=== PATIENT | male | born 1975 | race Caucasian/White ===

== ENCOUNTER → 2023-06-26 08:23 | Outpatient (BNVA) | payer OTHER, SELFPAY | PROVIDERS: Family Provider Family Medicine; PCP Family Medicine; Visit Provider Family Medicine | DX: Z00.00 Encounter for general adult medical examination without abnormal findings (principal) | CPT/HCPCS: 80053; 80061 ==

== ENCOUNTER 2023-07-24 03:39 | Emergency (ER) | payer OTHER, SELFPAY ==
[2023-07-24 03:45] VITALS: BP 135/86; PULSE 100; RESP 18; TEMP 36.6; O2SAT 100; BMI 25.0
--- NOTE | 2023-07-24 03:50 | CTR_ITS ---
PROCEDURE INFORMATION: Exam: CT Abdomen And Pelvis With Contrast Exam date and time: 07/24/2023 4:05 AM Age: 47 years old Clinical indication: Abdominal pain; Localized; Right lower quadrant (rlq); Prior surgery; Surgery date: 6+ months; Surgery type: Gb; Additional info: Rlq pain TECHNIQUE: Imaging protocol: Computed tomography of the abdomen and pelvis with contrast. Radiation optimization: All CT scans at this facility use at least one of these dose optimization techniques: automated exposure control; mA and/or kV adjustment per patient size (includes targeted exams where dose is matched to clinical indication); or iterative reconstruction. Contrast material: OMNI 350; Contrast volume: 100 ml; Contrast route: INTRAVENOUS (IV); REPORTING DATA: Count of CT and Cardiac NM exams in prior 12 months: This patient has received 0 known CTs and 0 known cardiac nuclear medicine studies in the 12 months prior to the current study. COMPARISON: No relevant prior studies available. RADIATION DOSE METRICS: Total DLP (mGy-cm): 677.3 FINDINGS: Lungs: The lung bases are clear. Liver: Unremarkable. Gallbladder and bile ducts: Prior cholecystectomy, no significant biliary tree dilation. Pancreas: Unremarkable. Spleen: Unremarkable. Adrenal glands: Unremarkable. Kidneys and ureters: No hydronephrosis of either kidney. No visible ureteral calculus. No perinephric fluid. The kidneys enhance homogeneously. Stomach and bowel: No significant bowel distention. There are no CT findings to strongly suggest diverticulitis. Appendix: The appendix is visualized and appears normal. Intraperitoneal space: No free intraperitoneal air, or ascites. Vasculature: No evidence for abdominal aortic aneurysm. Lymph nodes: No retroperitoneal adenopathy. Urinary bladder: Possibly some mild diffuse urinary bladder wall thickening. Evaluation is somewhat limited, as the bladder is not well distended. This may be related to the prostate enlargement and chronic partial outlet obstruction. While nonspecific, this could also indicate evidence for cystitis. Please correlate clinically. No visible calculus in the bladder. Reproductive: Prostate enlargement with transverse diameter of about 5 cm. Correlation with PSA levels may be useful to help exclude prostate malignancy. Bones/joints: Moderate degenerative disc changes in the lumbar spine, most prominent L3-L4. Soft tissues: No significant acute finding. CT/CT abdomen pelvis w con* [id number] IMPRESSION: 1. Normal appendix. 2. No free air or significant bowel distention. 3. Prostate enlargement and mild urinary bladder wall thickening, see above. 4. No hydronephrosis of either kidney. No visible ureteral calculus 5. Other findings discussed above.
--- NOTE | 2023-07-24 03:53 | ED_ITS ---
HPI - Abdominal Pain General: Chief Complaint: Abdominal Pain Stated Complaint: side pain Time Seen by Provider: 07/24/23 03:41 Source: patient Mode of arrival: ambulatory Limitations: no limitations History of Present Illness: 47-year-old male states that he has been having some right lower quadrant a bdominal pain since yesterday states that slightly worsened today states pain is a 4 out of 10 it seems to come and go sharp in nature he states he has been doing some lifting but does not feel like a muscle strain he has had a cholecystectomy in the past denies any vomiting diarrhea or dysuria. Denies any fevers. Associated Symptoms: Denies chills, diarrhea, dysuria, fever(s), nausea and vomiting Review of Systems Const: Denies: fever(s), chills, body aches or change in appetite ENMT: Denies: throat pain or dental pain Card: Denies: chest pain Resp: Denies: dyspnea GI: Reports: abdominal pain; Denies: nausea, vomiting or diarrhea : Denies: dysuria Musc: Denies: neck pain or back pain Skin/Breast: Denies: rash Neuro: Denies: headache(s) PFSH ED PFSH: Social History Smoking and tobacco/nicotine status: never used tobacco/nicotine Physical Exam Const: COMMON NORMALS: no acute distress, patient oriented x3 and healthy appearing HENMT: COMMON NORMALS: normocephalic and atraumatic HEAD & SCALP: normocephalic and atraumatic Neck/C-Spine: COMMON NORMALS: full ROM and supple Chest: COMMONS NORMALS: normal inspection of the chest and normal palpation of entire chest wall Resp: COMMON NORMALS: normal respiratory effort, No retractions, No use of accessory muscles and clear to auscultation bilaterally AUSCULTATION: clear to auscultation bilaterally Cardio: COMMON NORMALS: regular rate, regular rhythm and No murmurs present (Cardio) RATE: regular rate RHYTHM: regular rhythm GI: COMMON NORMALS: Normal to inspection, nondistended, normoactive bowel sounds present, Soft to palpation and no masses PALPATION: Yes Soft to palpation and Yes Tenderness to palpation present (GI) Details: RLQ Extremity: COMMON NORMALS: normal to inspection and full ROM Neuro: COMMON NORMALS: patient oriented x3, moves all extremities and no focal motor deficits Psych: COMMON NORMALS: mental status grossly normal, Normal thought process pr esent and cooperative THOUGHT PROCESS: Normal thought process present Skin: COMMON NORMALS: no rashes or lesions noted and no wounds GENERAL SKIN EXAM: no rashes or lesions noted Course Vital Signs: Vital signs: Vital Signs Temperature 98 F 07/24/23 03:45 Pulse Rate 55 L 07/24/23 04:28 Respiratory Rate 18 07/24/23 03:45 Blood Pressure 130/83 07/24/23 04:28 Pulse Oximetry 100 07/24/23 04:28 Oxygen Delivery Me thod Room Air 07/24/23 04:28 MDM - Abdominal Pain Medical Decision Making Patient presents here with abdominal pain CT and blood work are all normal. Exam at discharge is benign no signs of acute surgical abdomen he is stable for discharge she is to follow-up with PCP and return if worsening. Medical Records I reviewed the patient's medical records. Lab Data I reviewed the patient's lab results. 07/24/23 03:51 07/24/23 03:51 Labs/Radiology: Radiology Impressions Abdomen/Pelvis CT 07/24/23 03:50 IMPRESSION: 1. Normal appendix. 2. No free air or significant bowel distention. 3. Prostate enlargement and mild urinary bladder wall thickening, see above. 4. No hydronephrosis of either kidney. No visible ureteral calculus 5. Other findings discussed above. Laboratory Results WBC 4.90 10^3/uL (3.29-11.43) 07/24/23 03:51 RBC 5.01 10^6/uL (3.85-5.65) 07/24/23 03:51 Hgb 14.90 g/dL (11.27-16.99) 07/24/23 03:51 Hct 45.4 % (37-53) 07/24/23 03:51 MCV 90.6 fl (82-101) 07/24/23 03:51 MCH 29.7 pg (27-33) 07/24/23 03:51 MCHC 32.8 g/dL (30-55) 07/24/23 03:51 RDW 12.6 % (12.1-15.1) 07/24/23 03:51 Plt Count 214 10^3/cmm (157-399) 07/24/23 03:51 MPV 10.4 fL (7.4-10.4) 07/24/23 03:51 Neut % (Auto) 39.4 % 07/24/23 03:51 Lymph % (Auto) 45.1 % 07/24/23 03:51 [place] % (Auto) 12.2 % 07/24/23 03:51 Eos % (Auto) 2.7 % 07/24/23 03:51 Baso % (Auto) 0.4 % 07/24/23 03:51 Neut # (Auto) 1.93 10^3/uL (1.8-7.7) 07/24/23 03:51 Lymph # (Auto) 2.2 10^3/uL (0.8-4.8) 07/24/23 03:51 [place] # (Auto) 0.6 10^3/uL (0.2-0.9) 07/24/23 03:51 Eos # (Auto) 0.1 10^3/uL (0.0-0.8) 07/24/23 03:51 Baso # (Auto) 0.0 10^3/uL (0.0-0.1) 07/24/23 03:51 Nucleated RBC % (auto) 0 % 07/24/23 03:51 Nucleated RBCs # 0.0 /100WBC 07/24/23 03:51 Sodium 142 mmol/L (136-145) 07/24/23 03:51 Potassium 4.5 mmol/L (3.5-5.1) 07/24/23 03:51 Chloride 104 mmol/L (98-107) 07/24/23 03:51 Carbon Dioxide 28 mmol/L (22-29) 07/24/23 03:51 Anion Gap 14.5 (5-19) 07/24/23 03:51 BUN 26 mg/dL (6-20) H 07/24/23 03:51 Creatinine 1.0 mg/dL (0.7-1.2) 07/24/23 03:51 GFR Calculation 79.8 mL/min (90-130) L 07/24/23 03:51 Glucose 120 mg/dL (65-115) H 07/24/23 03:51 Calculated Osmolality 300 mOsm/kg (285-295) H 07/24/23 03:51 Calcium 9.3 mg/dL (8.5-10.5) 07/24/23 03:51 Total Bilirubin 0.5 mg/dL (0.15-1.2) 07/24/23 03:51 AST 26 U/L (0-40) 07/24/23 03:51 ALT 16 U/L (0-41) 07/24/23 03:51 Alkaline Phosphatase 96 U/L (40-130) 07/24/23 03:51 Total Protein 7.0 g/dL (6.6-8.7) 07/24/23 03:51 Albumin 4.8 g/dL (3.5-5.2) 07/24/23 03:51 Globulin 2.2 g/dL (1.3-4.6) 07/24/23 03:51 Lipase 49 U/L (13-60) 07/24/23 03:51 Urine Color Yellow (Yellow) 07/24/23 04:19 Urine Appearance Clear (CLEAR) 07/24/23 04:19 Urine pH 5 (5-7) 07/24/23 04:19 Ur Specific [place] 1.025 (1.005-1.030) 07/24/23 04:19 Urine Protein Neg (Negative) 07/24/23 04:19 Urine Glucose (UA) Norm (Normal) 07/24/23 04:19 Urine Ketones Negative (Negative) 07/24/23 04:19 Urine Blood Neg (Negative) 07/24/23 04:19 Urine Nitrate Negative (Negative) 07/24/23 04:19 Urine Bilirubin Neg (Negative) 07/24/23 04:19 Urine Urobilinogen Neg mg/dL (Negative) 07/24/23 04:19 Ur Leukocyte Esterase Negative (Negative) 07/24/23 04:19 All radiology interpretation(s) finalized by discharge Discharge Plan Discharge Patient Disposition: Home Clinical Impression: Abdominal pain Condition: Stable Prescriptions: New Naprosyn 500 mg tablet 500 mg PO BID PRN (Reason: pain) Qty: 20 0RF No Action valacyclovir 1 gram tablet 1,000 mg PO TID 7 Days Qty: 21 0RF Rx Instructions: 340b hydroxyzine HCl 25 mg tablet 25 mg PO .HS PRN (Reason: itching) Qty: 14 0RF Discharge Orders: Discharge ED (Routine); Ordered 07/24/23 Ordered By: Yuri Funes Referrals: Mark Jha MD [Primary Care Provider] - 1-3 days Discharge Diet: Advance as tolerated Discharge Activity: Resume usual activity Patient Instructions: Abdominal Pain (ED) Coding Level of Care Code ED Contact Officer for Irena [place]
[2023-07-24] MEDS: sodium chloride 0.9% 1,000 ML 999 ML IV (03:56)
[2023-07-24 03:58] LABS: Basophils % 0.4 %; Eosinophils # 0.1 10^3/uL (0.0-0.8); Eosinophils % 2.7 %; Hematocrit 45.4 % (37-53); Lymphocytes # 2.2 10^3/uL (0.8-4.8); Lymphocytes % 45.1 %; Mean Corpuscular HGB Conc 32.8 g/dL (30-55); Mean Corpuscular Hemoglobin 29.7 pg (27-33); Mean Corpuscular Volume 90.6 fl (82-101); Mean Platelet Volume 10.4 fL (7.4-10.4); Monocytes # 0.6 10^3/uL (0.2-0.9); Monocytes % 12.2 %; Neutrophils # 1.93 10^3/uL (1.8-7.7); Neutrophils % 39.4 %; Nucleated Red Blood Cells % 0 %; Platelet Count 214 10^3/cmm (157-399); Red Blood Count 5.01 10^6/uL (3.85-5.65); Red Cell Distribution Width 12.6 % (12.1-15.1)
[2023-07-24] MEDS: iohexol 350 mg/mL 500 mL Btl (per mL) IV (04:09)
[2023-07-24 04:16] LABS: Alanine Aminotransferase 16 U/L (0-41); Albumin Level 4.8 g/dL (3.5-5.2); Alkaline Phosphatase 96 U/L (40-130); Anion Gap 14.5 (5-19); Aspartate Amino Transferase 26 U/L (0-40); Blood Urea Nitrogen 26 mg/dL (6-20); Calcium 9.3 mg/dL (8.5-10.5); Carbon Dioxide 28 mmol/L (22-29); Chloride 104 mmol/L (98-107); Globulin 2.2 g/dL (1.3-4.6); Glomerular Filtration Rate 79.8 mL/min (90-130); Glucose 120 mg/dL (65-115); Lipase 49 U/L (13-60); Osmolality Calculated 300 mOsm/kg (285-295); Potassium 4.5 mmol/L (3.5-5.1); Sodium 142 mmol/L (136-145); Total Bilirubin 0.5 mg/dL (0.15-1.2)
[2023-07-24 04:24] LABS: Add Urine Microscopic? NO; Charge for UA Resulting for Rev
[2023-07-24 04:28] VITALS: BP 130/83; PULSE 55; O2SAT 100
[2023-07-24 04:30] LABS: Bilirubin Urine Neg (Negative); Blood Urine Neg (Negative); Glucose Urine UA Norm (Normal); Ketones Urine Negative (Negative); Leukocyte Esterase Urine Negative (Negative); Nitrate Urine Negative (Negative); Protein Urine Neg (Negative); Specific Gravity, Urine 1.025 (1.005-1.030); Urine Appearance Clear (CLEAR); Urine Color Yellow (Yellow); Urobilinogen Urine Neg (Negative); pH Urine 5 (5-7)
[2023-07-24 04:49] VITALS: BP 131/73; PULSE 50; RESP 14
== END 2023-07-24 04:52 | disposition home or self-care (01) ==
PROVIDERS: Emergency Provider Emergency Medicine; PCP Family Medicine
DX: R10.31 Right lower quadrant pain (principal)
CPT/HCPCS: 74177; 80053; 81003; 83690; 85025; 96360; 99285; J7030; Q9967

== ENCOUNTER 2023-07-25 02:52 | Emergency (ER) | payer OTHER, SELFPAY ==
[2023-07-25 03:03] VITALS: BP 130/91; PULSE 57; RESP 20; TEMP 36.6; O2SAT 98; BMI 36.4
[2023-07-25] MEDS: sodium chloride 0.9% 1,000 ML 999 ML IV (03:22)
[2023-07-25] MEDS: ondansetron 2 mg/ML SDV 2 mL 4 MG IVP (03:23)
[2023-07-25] MEDS: ketorolac 30 mg/mL INJ IVP (03:25)
[2023-07-25 03:31] LABS: Basophils % 0.5 %; Eosinophils # 0.1 10^3/uL (0.0-0.8); Eosinophils % 3.2 %; Lymphocytes # 1.8 10^3/uL (0.8-4.8); Lymphocytes % 41.6 %; Mean Corpuscular HGB Conc 32.7 g/dL (30-55); Mean Corpuscular Hemoglobin 29.6 pg (27-33); Mean Corpuscular Volume 90.5 fl (82-101); Mean Platelet Volume 10.6 fL (7.4-10.4); Monocytes # 0.5 10^3/uL (0.2-0.9); Monocytes % 10.5 %; Neutrophils # 1.93 10^3/uL (1.8-7.7); Nucleated Red Blood Cells % 0 %; Platelet Count 183 10^3/cmm (157-399); Red Blood Count 4.53 10^6/uL (3.85-5.65); Red Cell Distribution Width 12.7 % (12.1-15.1); White Blood Count 4.38 10^3/uL (3.29-11.43)
[2023-07-25 03:49] LABS: Alanine Aminotransferase 17 U/L (0-41); Albumin Level 4.4 g/dL (3.5-5.2); Alkaline Phosphatase 102 U/L (40-130); Anion Gap 11.4 (5-19); Aspartate Amino Transferase 23 U/L (0-40); Blood Urea Nitrogen 27 mg/dL (6-20); Calcium 9.6 mg/dL (8.5-10.5); Carbon Dioxide 30 mmol/L (22-29); Chloride 103 mmol/L (98-107); Globulin 1.8 g/dL (1.3-4.6); Glomerular Filtration Rate 79.8 mL/min (90-130); Glucose 116 mg/dL (65-115); Lipase 35 U/L (13-60); Osmolality Calculated 296 mOsm/kg (285-295); Potassium 4.4 mmol/L (3.5-5.1); Sodium 140 mmol/L (136-145); Total Bilirubin 0.3 mg/dL (0.15-1.2); Total Protein 6.2 g/dL (6.6-8.7)
--- NOTE | 2023-07-25 04:30 | CTR_ITS ---
PROCEDURE INFORMATION: Exam: CT Abdomen And Pelvis With Contrast Exam date and time: 07/25/2023 4:46 AM Age: 47 years old Clinical indication: Abdominal pain; Localized; Right lower quadrant (rlq); Prior surgery; Surgery date: 6+ months; Surgery type: Gb; Patient HX: C/O rlq pain TECHNIQUE: Imaging protocol: Computed tomography of the abdomen and pelvis with contrast. Radiation optimization: All CT scans at this facility use at least one of these dose optimization techniques: automated exposure control; mA and/or kV adjustment per patient size (includes targeted exams where dose is matched to clinical indication); or iterative reconstruction. Contrast material: OMNI 350; Contrast volume: 100 ml; Contrast route: INTRAVENOUS (IV); REPORTING DATA: Count of CT and Cardiac NM exams in prior 12 months: This patient has received [address] and 0 known cardiac nuclear medicine studies in the 12 months prior to the current study. COMPARISON: CT abdomen pelvis w con* [id number] 07/24/2023 4:05 AM RADIATION DOSE METRICS: Total DLP (mGy-cm): 679.35 FINDINGS: Liver: Normal. No mass. Gallbladder and bile ducts: The gallbladder is surgically removed Pancreas: Normal. No ductal dilation. Spleen: Normal. No splenomegaly. Adrenal glands: Normal. No mass. Kidneys and ureters: 10 mm exophytic cyst in the right kidney. Stomach and bowel: Colonic diverticulosis without evidence of diverticulitis. Appendix: The appendix is visualized and appears normal. Intraperitoneal space: Unremarkable. No free air. No significant fluid collection. Vasculature: Unremarkable. No abdominal aortic aneurysm. Lymph nodes: Unremarkable. No enlarged lymph nodes. Urinary bladder: Unremarkable as visualized. Reproductive: Calcification of the central prostate gland. Bones/joints: Unremarkable. No acute fracture. Soft tissues: Unremarkable. CT/CT abdomen pelvis w con* [id number] IMPRESSION: 1. The appendix is visualized and appears normal. 2. Subcentimeter cysts in the right kidney too small to further characterize. 3. Mild colonic diverticulosis without evidence of diverticulitis COMMENTS: Consistent with the [employer]'s Incidental Findings Committee white paper (J Am Demetris Radiol 2018): Any incidental renal lesion less than 1 cm or classified as too small to characterize, or any incidental cystic renal lesion characterized as simple-appearing, is likely benign. No follow-up imaging is recommended for these lesions per consensus recommendations based on imaging criteria.
[2023-07-25] MEDS: iohexol 350 mg/mL 500 mL Btl (per mL) IV (04:48)
[2023-07-25 04:55] LABS: Add Urine Microscopic? NO; Charge for UA Resulting for Rev
[2023-07-25 05:00] VITALS: BP 126/81; PULSE 56; RESP 16; O2SAT 97
[2023-07-25 05:06] LABS: Bilirubin Urine Neg (Negative); Blood Urine Neg (Negative); Glucose Urine UA Norm (Normal); Ketones Urine 1+ (Negative); Leukocyte Esterase Urine Negative (Negative); Nitrate Urine Negative (Negative); Protein Urine Neg (Negative); Specific Gravity, Urine 1.025 (1.005-1.030); Urine Appearance Clear (CLEAR); Urine Color Yellow (Yellow); Urobilinogen Urine Neg (Negative); pH Urine 5 (5-7)
[2023-07-25 05:30] VITALS: BP 126/69; PULSE 58; RESP 16; O2SAT 98
--- NOTE | 2023-07-25 05:37 | W.ED.ABDPA2 ---
HPI - Abdominal Pain General: Chief Complaint: Abdominal Pain Stated Complaint: ABD Pains Right Side Time Seen by Provider: 07/25/23 03:10 History of Present Illness: 47-year-old male seen yesterday for similar complaints of right lower quadrant pain. He notes that after his visit yesterday, pain seemed to go away on its own. He had a mostly normal day, except for a ?sour? feeling in his stomach. He even worked out as usual. He then had a resurgence of pain at home Early this morning. 8 out of 10 pain. It has subsided now to less than four. Some nausea. No vomiting. No diarrhea. No fever. No blood in the stool. Associated Symptoms: Reports nausea; Denies chills, coffee ground emesis, constipation, diarrhea, fever(s), hematuria, melena and vomiting Review of Systems Const: Denies: fever(s) or chills Eyes: Denies: change in vision ENMT: Denies: throat pain Card: Denies: chest pain Resp: Denies: dyspnea, productive cough or non-productive cough GI: Reports: abdominal pain and nausea; Denies: vomiting, coffee ground emesis, diarrhea, constipation, rectal pain or melena : Denies: flank pain, difficulty urinating or hematuria Musc: Denies: neck pain Skin/Breast: Denies: rash PFSH ED PFSH: Social History Smoking and tobacco/nicotine status: never used tobacco/nicotine Physical Exam Const: COMMON NORMALS: no acute distress GENERAL APPEARANCE: cooperative; not ill appearing and not frail appearing HENMT: COMMON NORMALS: normocephalic, atraumatic and Normal external nose present HEAD & SCALP: normocephalic and atraumatic FACE & SINUS: normal facial exam and face symmetric NOSE: Normal external nose present Eye: COMMON NORMALS: Equal, round and reactive pupils present and EOMs intact bilaterally PUPIL: Yes Equal, round and reactive pupils present Neck/C-Spine: GENERAL: Yes trachea midline Chest: CHEST: Yes Symmetrical chest wall rise Resp: COMMON NORMALS: normal respiratory effort, No retractions, No use of accessory muscles and clear to auscultation bilaterally AUSCULTATION: clear to auscultation bilaterally Cardio: COMMON NORMALS: regular rate and regular rhythm RATE: regular rate RHYTHM: regular rhythm GI: COMMON NORMALS: Normal to inspection, nondistended, normoactive bowel sounds present Extremity: COMMON NORMALS: no pedal edema Neuro: MICHAEL COMA SCALE: document GCS findings [place] coma scale eye opening: Spontaneous Michael coma scale verbal response: Orientated Michael coma scale motor response: Obey commands Michael coma scale total score: 15 SENSORY EXAM: Yes extremities (intact) Psych: COMMON NORMALS: speech normal SPEECH: Yes normal speech Skin: COMMON NORMALS: no rashes or lesions noted GENERAL SKIN EXAM: no rashes or lesions noted Course Vital Signs: Vital signs: Vital Signs Temperature 98 F 07/25/23 03:03 Pulse Rate 52 L 07/25/23 06:00 Respiratory Rate 16 07/25/23 06:00 Blood Pressure 127/75 07/25/23 06:00 Pulse Oximetry 96 07/25/23 06:00 MDM - Abdominal Pain Medical Decision Making His vitals are stable. His pain is well relieved with toradol. CBC is normal. BMP shows a BUN of 27, and is otherwise not remarkable. Repeat CT due to continued right lower quadrant pain was performed. Appendix is again normal. there are sub centimeter cysts in the right kidney which are too small to characterize, and likely not clinically relevant. There is no diverticulitis or other problem. On my interpretation of the CT scan, there is a thin spot in his abdominal wall on the right side, it appears that the bowel approaches the musculature, and there may be some omental fat stranding in that area. This is right where he is tender. He will be placed on three days of anti inflammatories. Limit lifting, working out. Return for worsening symptoms. Outpatient follow up. Lab Data 07/25/23 03:20 07/25/23 03:20 Labs/Radiology: Radiology Impressions Abdomen/Pelvis CT 07/25/23 04:30 IMPRESSION: 1. The appendix is visualized and appears normal. 2. Subcentimeter cysts in the right kidney too small to further characterize. 3. Mild colonic diverticulosis without evidence of diverticulitis COMMENTS: Consistent with the [employer]'s Incidental Findings Committee white paper (J Am Demetris Radiol 2018): Any incidental renal lesion less than 1 cm or classified as too small to characterize, or any incidental cystic renal lesion characterized as simple-appearing, is likely benign. No follow-up imaging is recommended for these lesions per consensus recommendations based on imaging criteria. Laboratory Results WBC 4.38 10^3/uL (3.29-11.43) 07/25/23 03:20 RBC 4.53 10^6/uL (3.85-5.65) 07/25/23 03:20 Hgb 13.40 g/dL (11.27-16.99) 07/25/23 03:20 Hct 41.0 % (37-53) 07/25/23 03:20 MCV 90.5 fl (82-101) 07/25/23 03:20 MCH 29.6 pg (27-33) 07/25/23 03:20 MCHC 32.7 g/dL (30-55) 07/25/23 03:20 RDW 12.7 % (12.1-15.1) 07/25/23 03:20 Plt Count 183 10^3/cmm (157-399) 07/25/23 03:20 MPV 10.6 fL (7.4-10.4) H 07/25/23 03:20 Neut % (Auto) 44.0 % 07/25/23 03:20 Lymph % (Auto) 41.6 % 07/25/23 03:20 [place] % (Auto) 10.5 % 07/25/23 03:20 Eos % (Auto) 3.2 % 07/25/23 03:20 Baso % (Auto) 0.5 % 07/25/23 03:20 Neut # (Auto) 1.93 10^3/uL (1.8-7.7) 07/25/23 03:20 Lymph # (Auto) 1.8 10^3/uL (0.8-4.8) 07/25/23 03:20 [place] # (Auto) 0.5 10^3/uL (0.2-0.9) 07/25/23 03:20 Eos # (Auto) 0.1 10^3/uL (0.0-0.8) 07/25/23 03:20 Baso # (Auto) 0.0 10^3/uL (0.0-0.1) 07/25/23 03:20 Nucleated RBC % (auto) 0 % 07/25/23 03:20 Nucleated RBCs # 0.0 /100WBC 07/25/23 03:20 Sodium 140 mmol/L (136-145) 07/25/23 03:20 Potassium 4.4 mmol/L (3.5-5.1) 07/25/23 03:20 Chloride 103 mmol/L (98-107) 07/25/23 03:20 Carbon Dioxide 30 mmol/L (22-29) H 07/25/23 03:20 Anion Gap 11.4 (5-19) 07/25/23 03:20 BUN 27 mg/dL (6-20) H 07/25/23 03:20 Creatinine 1.0 mg/dL (0.7-1.2) 07/25/23 03:20 GFR Calculation 79.8 mL/min (90-130) L 07/25/23 03:20 Glucose 116 mg/dL (65-115) H 07/25/23 03:20 Calculated Osmolality 296 mOsm/kg (285-295) H 07/25/23 03:20 Lactic Acid 1.0 mmol/L (0.5-2.2) 07/25/23 03:20 Calcium 9.6 mg/dL (8.5-10.5) 07/25/23 03:20 Total Bilirubin 0.3 mg/dL (0.15-1.2) 07/25/23 03:20 AST 23 U/L (0-40) 07/25/23 03:20 ALT 17 U/L (0-41) 07/25/23 03:20 Alkaline Phosphatase 102 U/L (40-130) 07/25/23 03:20 C-Reactive Protein 3.0 mg/L (0.0-4.9) 07/25/23 03:20 Total Protein 6.2 g/dL (6.6-8.7) L 07/25/23 03:20 Albumin 4.4 g/dL (3.5-5.2) 07/25/23 03:20 Globulin 1.8 g/dL (1.3-4.6) 07/25/23 03:20 Lipase 35 U/L (13-60) 07/25/23 03:20 Urine Color Yellow (Yellow) 07/25/23 04:48 Urine Appearance Clear (CLEAR) 07/25/23 04:48 Urine pH 5 (5-7) 07/25/23 04:48 Ur Specific [place] 1.025 (1.005-1.030) 07/25/23 04:48 Urine Protein Neg (Negative) 07/25/23 04:48 Urine Glucose (UA) Norm (Normal) 07/25/23 04:48 Urine Ketones 1+ (Negative) H 07/25/23 04:48 Urine Blood Neg (Negative) 07/25/23 04:48 Urine Nitrate Negative (Negative) 07/25/23 04:48 Urine Bilirubin Neg (Negative) 07/25/23 04:48 Urine Urobilinogen Neg mg/dL (Negative) 07/25/23 04:48 Ur Leukocyte Esterase Negative (Negative) 07/25/23 04:48 All radiology interpretation(s) finalized by discharge Discharge Plan Discharge Patient Disposition: Home Clinical Impression: Abdominal pain Condition: Stable Prescriptions: New ketorolac 10 mg tablet 10 mg PO TID PRN (Reason: pain) Qty: 10 0RF Discontinued naproxen [Naprosyn] 500 mg tablet 500 mg PO BID PRN (Reason: pain) Qty: 20 0RF No Action valacyclovir 1 gram tablet 1,000 mg PO TID 7 Days Qty: 21 0RF Rx Instructions: 340b hydroxyzine HCl 25 mg tablet 25 mg PO .HS PRN (Reason: itching) Qty: 14 0RF Discharge Orders: Discharge ED (Routine); Ordered 07/25/23 Ordered By: Esau Felton Referrals: Mark Jha MD [Primary Care Provider] - 4-7 days Patient Instructions: Acute Abdominal Pain (ED), Abdominal Pain (ED), Pain Management Activity Restrictions/Additional Instructions: No heavy lifting or catching dynamic weight for the next 2 to 5 days. Medication as directed, for the next 3 days. Return for fever greater than 100, vomiting liquids or medications, worsening pain despite treatment, blood in the stool, any other concerning symptoms. Follow-up with your doctor next week. 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
[2023-07-25 06:00] VITALS: BP 127/75; PULSE 52; RESP 16; O2SAT 96
== END 2023-07-25 06:50 | disposition home or self-care (01) ==
PROVIDERS: Emergency Provider Emergency Medicine; PCP Family Medicine
DX: R10.31 Right lower quadrant pain (principal); K57.30 Diverticulosis of large intestine without perforation or abscess without bleeding
CPT/HCPCS: 74177; 80053; 81003; 83605; 83690; 85025; 86140; 96361; 96374; 96375; 99285; J1885; J2405; J7030; Q9967

== ENCOUNTER → 2024-06-01 11:12 | Outpatient (BNVA) | payer OTHER, SELFPAY | PROVIDERS: PCP Family Medicine; Visit Provider Family Medicine | DX: R10.2 Pelvic and perineal pain (principal) | CPT/HCPCS: 87086; 87491; 87591 ==